=== PATIENT | female | born 1995 | race African-American/Black ===

== ENCOUNTER 2017-11-28 09:54 | Emergency (ER) | payer MEDICAID ==
[~2017-11-28 09:54] MED LIST: FERRTAB2 PO; PREN1CAP20 PO
--- NOTE | 2017-11-28 10:31 | PD ---
HPI Chief Complaint [place] discharge with cramping Date Seen: Nov 28, 2017 Time Seen: 10:27 Travel History International Travel<30 Days: No Contact w/Intl Traveler<30Days: No Known Affected Area: No History of Present Illness HPI 21-year-old who is at 37 weeks 6 days comes in complaining of pink discharge that occurred this morning and lower pelvic cramping that has been occurring since last night. Patient was checked a couple days ago and was noted to be 1 cm. She is group B strep positive and is set up for section in 2 weeks due to breech presentation Weeks Gestation: 37 Para: 0 : 1 History Past Medical History Medical History: Denies Significant Hx Past Surgical History Surgical History: No Previous Surgery Family History Family History: Negative Social History Alcohol Use: No Tobacco Use: No Substance Abuse: No Allergies-Medications (Allergen,Severity, Reaction): Coded Allergies: No Known Allergies (Unverified Adverse Reaction, Unknown, 09/17/17) Home Meds Active Scripts Multi-Vit/Iron-Folic [id number] C (Ferralet) 90-1-0.012-120 mg Tab, 1 CAPLET PO DAILY for 30 Days, #30 CAP 4 [facility] W/O Vit A W/ Fe Carbo (Prenate Mini 18-0.6-0.4-350 mg) 18 Mg Iron-1 Mg- 350 Mg Cap, 1 CAPLET PO DAILY for 30 Days, #30 CAPLET 3 [facility] Review of Systems Except as stated in HPI: all other systems reviewed are Neg Physical Exam Narrative GENERAL: Well-nourished, well-developed patient. SKIN: Warm and dry. HEAD: Normocephalic and atraumatic. EYES: No scleral icterus. No injection or drainage. ENT: No nasal drainage noted. Mucous membranes pink. Airway patent. NECK: Supple, trachea midline. No JVD. CARDIOVASCULAR: Regular rate and rhythm without murmurs, gallops, or rubs. RESPIRATORY: Breath sounds equal bilaterally. No accessory muscle use. ABDOMEN/GI: Abdomen soft, non-tender, bowel sounds present, no rebound, no guarding Gravid to [37-] weeks size Fundal Height: [-] GENITOURINARY: External Genitalia: intact and normal in appearance BUS glands: [-Normal] Cervix: [-Posterior] Dilatation: [1] Effacement: [50-] Station: [-High] Presentation: [-Breech] Membranes: [intact or ruptured] intact Uterine Contractions: [-] Occasional FHT's: Category: [-] 1 Baseline: [-] 140 Reactive: [-] Moderate Variability: [-] Moderate Decels: [-] Absent EXTREMITIES: No cyanosis or edema. BACK: Nontender without obvious deformity. No CVA tenderness. NEUROLOGICAL: Awake and alert. Motor and sensory grossly within normal limits. Five out of 5 muscle strength in all muscle groups. Normal speech. Data Data Vital Signs Reviewed: Yes Group B Strep: Positive MDM Medical Record Reviewed: Yes Plan 21-year-old who is at 37 weeks 6 days with breech presentation Small amount of pink discharge noted by patient now resolved Patient is not in labor with only occasional contractions and no cervical change since her last exam earlier this week Patient has a primary section set up for 2 weeks Diagnosis Diagnosis: Primary Impression: 37 weeks gestation of Additional Impressions: Breech presentation Pelvic pain affecting in third trimester, antepartum Disposition: 01 DISCHARGE HOME Pat Chino MD Nov 28, 2017 10:31
== END 2017-11-28 11:12 | disposition home or self-care (01) ==
LOC: HOBED 09:54
DX: O26.893 Other specified pregnancy related conditions, third trimester (principal); R10.2 Pelvic and perineal pain; O32.1XX0 Maternal care for breech presentation, not applicable or unspecified; O98.813 Other maternal infectious and parasitic diseases complicating pregnancy, third trimester; B95.1 Streptococcus, group B, as the cause of diseases classified elsewhere; Z3A.37 37 weeks gestation of pregnancy
CPT/HCPCS: 99283

== ENCOUNTER 2017-11-29 12:25 | Inpatient (IN) | payer MEDICAID ==
[~2017-11-29] VITALS: Ht 172.7 cm; Wt 88.0 kg
[~2017-11-29 12:25] MED LIST changes: +KETOROLAC TROMETHAMINE 30 MG/ML (IVP) VIAL IV PUSH ONE; +ONDANSETRON HCL 4 MG/2 ML VIAL IV ONE; +OXYTOCIN 10 UNIT/ML AMP IV ONE; +PHENYLEPH/NS 1000 MCG/10 ML SYR IV ONE; +PROPOFOL 200 MG/20 ML AMP IV ONE; +ePHEDrine/NS 25 MG/5 ML SYRINGE IV ONE
--- NOTE | 2017-11-29 13:47 | HHI.HP ---
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) Patient Name: Franco Novak Unit Number: [id number] Date of : 1995 Patient Status: Discharged Inpatient (obs) Attending Doctor: Gerardo Stuart II, MD HPI HPI Chief Complaint Patient is 21-year-old black female at 38 weeks with fetus in breech presentation and in early labor today and kvng cervix -3 still breech ,so we will plan the patient for a primary section Date Seen: Nov 29, 2017 Time Seen: 1 300 Travel History International Travel<30 Days: No Contact w/Intl Traveler<30Days: No History of Present Illness HPI Patient is a 21-year-old black female at 38 weeks breech presents in early labor cervix is dilated contractions noted heart tones are reactive Para: 0 : 1 History (Limited) History Social History Alcohol Use: No Tobacco Use: No Substance Abuse: No Allergies-Medications Allergies-Medications (Allergen,Severity, Reaction): Coded Allergies: No Known Allergies (Unverified Adverse Reaction, Unknown, 09/17/17) Home Meds Active Scripts Multi-Vit/Iron-Folic [id number] C (Ferralet) 90-1-0.012-120 mg Tab, 1 CAPLET PO DAILY for 30 Days, #30 CAP 4 Refills Prov:Patsy Quintanilla CNM [facility] 09/02/17 W/O Vit A W/ Fe Carbo (Prenate Mini 18-0.6-0.4-350 mg) 18 Mg Iron-1 Mg- 350 Mg Cap, 1 CAPLET PO DAILY for 30 Days, #30 CAPLET 3 Refills Prov:Patsy Quintanilla CNM [facility] 09/02/17 ROS Review of Systems General / Constitutional: No: Fever, Weight Gain, Chills, Other Eyes: No: Diploplia, Blurred Vision, Visual changes, Pain, Photophobia HENT: No: Headaches, Vertigo, Lightheadedness Cardiovascular: No: Irregular Rhythm, Chest Pain or Discomfort, Palpitations, Tachycardia, Syncope, Varicosities, Edema, Cyanosis Respiratory: No: Cough, Short of Breath, Other Gastrointestinal: No: Nausea, Vomiting, Diarrhea Genitourinary: No: Decreased Urinary Output, Oliguria Musculoskeletal: No: Limited ROM, Weakness, Cramping, Edema, Pain Skin: No Rash, No Itching, No Dryness, No Lumps, No Change in Pigmentation, No Change in Nails, No Alopecia, No Lesions Neurologic: No: Weakness, Dizziness, Syncope, Focal Abnormalities, Coordination Problem, Headache, Slurred Speech, Seizures Psychiatric: No: Depression, Suicidal Ideations, Homicidal Ideation Endocrine: No: Heat Intolerance, Cold Intolerance, Polydipsia, Polyuria, Other Physical Exam Physical Exam Narrative GENERAL: Well-nourished, well-developed patient. SKIN: Warm and dry. HEAD: Normocephalic and atraumatic. EYES: No scleral icterus. No injection or drainage. ENT: No nasal drainage noted. Mucous membranes pink. Airway patent. NECK: Supple, trachea midline. No JVD. CARDIOVASCULAR: Regular rate and rhythm without murmurs, gallops, or rubs. RESPIRATORY: Breath sounds equal bilaterally. No accessory muscle use. BREASTS: Bilateral exam showed no masses , no retractions, no nipple discharge. ABDOMEN/GI: Abdomen soft, non-tender, bowel sounds present, no rebound, no guarding Gravid to [36-] weeks size Fundal Height: [36-] GENITOURINARY: External Genitalia: intact and normal in appearance BUS glands: [-] Cervix: [post-] Dilatation: [4] Effacement: [80] Station: [-2] Presentation: [breech-] Membranes: [intact ] Uterine Contractions: q 6 min-] FHT's: Category: [-1] Baseline: [-133] Reactive: [-R] Variability: [mod-] Decels: [none-] EXTREMITIES: No cyanosis or edema. BACK: Nontender without obvious deformity. No CVA tenderness. NEUROLOGICAL: Awake and alert. Motor and sensory grossly within normal limits. Five out of 5 muscle strength in all muscle groups. Normal speech. Data Data Data Orders Orders Complete Blood Count With Diff (11/18/17 09:36) Type And Screen (11/18/17 09:36) Urinalysis - C+S If Indicated (11/18/17 09:36) Specimen To Be Collected PRN (11/18/17 09:36) Place In Observation (11/18/17 ) ^ Ultrasound For Locatio (11/18/17 09:39) ^ Non Stress Test (11/18/17 09:39) ^ Status (11/18/17 09:39) Discharge Instructions (11/18/17 09:39) ^ Rhogam (11/18/17 09:39) Lactated Ringer's 1000 Ml Inj (Lr 1000 M (11/18/17 09:39) Terbutaline Inj (Brethine Inj) (11/18/17 10:30) Fentanyl Inj (Fentanyl Inj) (11/18/17 10:30) Terbutaline Inj (Brethine Inj) (11/18/17 10:45) Fentanyl Inj (Fentanyl Inj) (11/18/17 10:15) Lactated Ringer's 1000 Ml Inj (Lr 1000 M (11/18/17 10:30) Attending Discharge Order (11/18/17 ) Dextrose 5%-Lactated Ring Inj (D5-Lr Inj (11/18/17 11:15) Fentanyl Inj (Fentanyl Inj) (11/18/17 11:45) Us Ob Bpp Wo Nst W Repeat (11/18/17 ) Labs Laboratory Tests Test 11/18/17 09:40 11/18/17 09:42 White Blood Count 7.2 Red Blood Count 3.71 Hemoglobin 10.7 Hematocrit 31.3 Mean Corpuscular Volume 84.4 Mean Corpuscular Hemoglobin 28.8 Mean Corpuscular Hemoglobin Concent 34.1 Red Cell Distribution Width 13.5 Platelet Count 284 Mean Platelet Volume 7.3 Neutrophils (%) (Auto) 66.0 Lymphocytes (%) (Auto) 23.9 Monocytes (%) (Auto) 9.2 Eosinophils (%) (Auto) 0.5 Basophils (%) (Auto) 0.4 Neutrophils # (Auto) 4.8 Lymphocytes # (Auto) 1.7 Monocytes # (Auto) 0.7 Eosinophils # (Auto) 0.0 Basophils # (Auto) 0.0 CBC Comment DIFF FINAL Differential Comment Urine Color YELLOW Urine Turbidity HAZY Urine pH 6.0 Urine Specific [place] 1.012 Urine Protein NEG Urine Glucose (UA) NEG Urine Ketones NEG Urine Occult Blood NEG Urine Nitrite NEG Urine Bilirubin NEG Urine Urobilinogen LESS THAN 2.0 Urine Leukocyte Esterase NEG Urine RBC LESS THAN 1 Urine WBC LESS THAN 1 Urine Squamous Epithelial Cells 10 Urine Mucus FEW Microscopic Urinalysis Comment CULT NOT INDICATED MDM MDM Interpretation(s) Patient is 21-year-old white female at 38 weeks who is now a section due to breech presentation in labor Plan admit to labor and delivery proceed with transabdominal delivery due to breech presentation Diagnosis: Breech presentation Disposition: 0 ADMIT Condition: Stable Patient Instructions: Early Labor Signs (GEN), Movement (DC) Gerardo Stuart II, MD Nov 29, 2017 13:42 Gerardo Stuart II, MD Nov 29, 2017 13:47
[2017-11-29] MEDS ORDERED: LACTATED RINGER'S 1000 ML INJ 1,000 ML IV ONE (14:00)
[2017-11-29] MEDS ORDERED: MORPHINE SULFATE PF 5 MG/10 ML VIAL ONE (14:14)
[2017-11-29 14:30] LABS: AUTOMATED NEUTROPHIL # 4.9 TH/MM3 (1.8-7.7); BASOPHIL % 0.5 % (0.0-2.0); EOSINOPHIL % 0.1 % (0.0-4.0); HEMATOCRIT 35.2 % (35.0-46.0); HEMOGLOBIN 11.7 GM/DL (11.6-15.3); LYMPHOCYTE # 1.4 TH/MM3 (1.0-4.8); MEAN CELL VOLUME 83.9 FL (80.0-100.0); MEAN CORPUSCULAR HEMOGLOBIN 27.8 PG (27.0-34.0); MEAN CORPUSCULAR HGB CONC 33.1 % (32.0-36.0); MEAN PLATELET VOLUME 7.6 FL (7.0-11.0); MONO % 7.4 % (0.0-8.0); MONOCYTE # 0.5 TH/MM3 (0-0.9); PLATELET COUNT 309 TH/MM3 (150-450); RED CELL DISTRIBUTION WIDTH 14.6 % (11.6-17.2); WHITE BLOOD COUNT 6.8 TH/MM3 (4.0-11.0)
[2017-11-29] MEDS ORDERED: LACTATED RINGER'S 1000 ML INJ 1,000 ML IV SCH ×2 (14:30→20:44)
[2017-11-29] MEDS ORDERED: ceFAZolin 2 GM PREMIX 50 ML IV SCH (14:45)
[2017-11-29] MEDS ORDERED: CITRIC ACID-SODIUM CITRATE LIQ 30 ML UDC PO SCH (15:15)
[2017-11-29] MEDS ORDERED: SODIUM CHLORIDE 0.9% FLUSH 10 ML FLUSH IV FLUSH PRN (15:45)
[2017-11-29] MEDS ORDERED: ACETAMINOPHEN 325 MG TAB PO PRN (15:45)
[2017-11-29] MEDS ORDERED: OXYTOCIN 30 UNITS-500ML PREMIX 500 ML IV ONE (15:45)
[2017-11-29] MEDS ORDERED: KETOROLAC TROMETHAMINE 60 MG/2 ML (IM) VIAL IM PRN ×2 (15:45)
[2017-11-29] MEDS ORDERED: ONDANSETRON HCL 4 MG/2 ML VIAL IV PUSH PRN (15:45)
[2017-11-29] MEDS ORDERED: MEPERIDINE HCL 25 MG/ML VIAL IV ONE (15:49)
[2017-11-29] MEDS ORDERED: MEPERIDINE HCL 25 MG/ML VIAL ONE (15:49)
[2017-11-29] MEDS ORDERED: ACETAMINOPHEN 1000 MG/100 ML 100 ML IV ONE ×2 (15:49)
[2017-11-29 15:55] VITALS: BP 129/72; PULSE 100; RESP 27; TEMP 98; O2SAT 100
[2017-11-29 16:05] VITALS: BP 141/83; PULSE 90; RESP 22; O2SAT 99
[2017-11-29 16:20] VITALS: BP 130/79; PULSE 81; RESP 30; O2SAT 100
[2017-11-29 16:24] LABS: BILIRUBIN, URINE NEG (NEG); BLOOD, URINE NEG (NEG); GLUCOSE,URINE NEG (NEG); KETONE, URINE 10 mg/dL (NEG); MUCUS URINE FEW /lpf (OCC); NITRITE,URINE NEG (NEG); URINE COLOR LIGHT-YELLOW (YELLW/STRAW); URINE LEUKOCYTE ESTERASE NEG (NEG)
[2017-11-29 16:34] VITALS: BP 136/67; PULSE 80; RESP 16; TEMP 98; O2SAT 100
--- NOTE | 2017-11-29 16:45 | MP ---
cc: Gerardo Stuart MD DATE OF OPERATION: 11/29/2017 PREOPERATIVE DIAGNOSIS: A 38-week intrauterine breech presentation in early labor. POSTOPERATIVE DIAGNOSIS: A 38-week intrauterine breech presentation in early labor. PROCEDURE PERFORMED: Primary low transverse section. SURGEON: Gerardo Stuart MD HELP AID: Martin ANESTHESIA: Spinal. PREOPERATIVE NOTE: The patient is a 21-year-old, black female G1, P0 at 38 weeks with known breech presentation for some time, now presents in early labor. Cervix is 4 cm dilated and 80% effaced with contractions every 6-7 minutes so patient is entering labor and will need transabdominal delivery. PROCEDURE: The patient was taken to the Operating Room and placed in supine position on the operating table. Adequate spinal anesthesia was administered. She was prepped and draped for abdominal surgery. A Pfannenstiel incision was made in the lower abdomen, carried to fascia sharply. The fascia dissected off the rectus muscle. The rectus split in the midline. Peritoneal cavity entered sharply. The incision extended superiorly and inferiorly. The bladder blade placed in the lower uterine incision, the visceral peritoneum reflected off the lower uterine segment and placed on a bladder blade. A transverse hysterotomy was made and extended bluntly bilaterally. Clear fluid noted. Baby was in a michelle breech presentation and was delivered without difficulty. Baby was delivered at 1506, female, weight 3560 grams, 8 and 9. There were no complications of delivery. Delayed cord clamping was done. Baby handed to waiting nursery staff. Cord blood obtained, the placenta manually extracted. The uterus exteriorized and the hysterotomy closed in running layer 0 chromic followed by imbricating suture of same. Hemostasis was achieved. The bladder reapproximated with a running suture of 2-0 Vicryl. The uterus elevated and blood suctioned cul-de-sac and gutters. The ovaries and tubes noted to be within normal limits. The uterus was placed in the peritoneal cavity. The parietal peritoneum was closed in running layer of 2-0 Vicryl. The rectus muscles were reapproximated with stick ties of chromic and Vicryl. The fascia closed in running layer 0 Vicryl. Subcutaneous tissues reapproximated with a running 3-0 plain catgut suture and then skin closed with 3-0 Monocryl subcuticular stitch. Pressure dressing applied. ESTIMATED BLOOD LOSS: 500 mL. COMPLICATIONS: There were no complications. SPONGE AND NEEDLE COUNTS: Correct x2. The patient returned to recovery in stable condition. MD ANGEL Sanon/PILO , 03:43 PM , 04:43 PM
[2017-11-29 16:50] VITALS: BP 143/72; PULSE 91; RESP 24; O2SAT 99
[2017-11-29] MEDS ORDERED: EPIDURAL-NALOXONE HCL 0.4 MG/ML AMP IV PUSH PRN (17:30)
[2017-11-29] MEDS ORDERED: EPIDURAL-NO SYSTEMIC NARCOTICS PRN (17:30)
[2017-11-29] MEDS ORDERED: EPIDURAL-DIPHENHYDRAMINE HCL 50 MG/ML VIAL IV PUSH PRN (17:30)
[2017-11-29] MEDS ORDERED: EPIDURAL-DIPHENHYDRAMINE HCL 50 MG CAP PO PRN (17:30)
[2017-11-29] MEDS ORDERED: EPIDURAL-DO NOT ADMINISTER ANTICOAGULANTS PRN (17:30)
[2017-11-29 20:00] VITALS: BP 153/82; PULSE 112; RESP 20; TEMP 98.5; O2SAT 98
[2017-11-29] MEDS ORDERED: SODIUM CHLORIDE 0.9% FLUSH 10 ML FLUSH IV FLUSH SCH (21:00)
[2017-11-29] MEDS ORDERED: ZOLPIDEM TARTRATE 5 MG TAB PO PRN (21:00)
[2017-11-30] MEDS: CEFAZOLIN INJ 2,000 MG in SODIUM CHLORIDE 0.9% INJ 100 ML IV SCH ×2 (00:21→08:38)
[2017-11-30 01:00] VITALS: BP 139/72; PULSE 102; RESP 18; TEMP 98.6; O2SAT 98
[2017-11-30] MEDS ORDERED: OXYTOCIN 30 UNITS-500ML PREMIX 500 ML IV PRN (01:45)
[2017-11-30] MEDS: IBUPROFEN 600 MG TAB PO PRN ×4 (04:00→23:41)
[2017-11-30] MEDS: oxyCODONE/ACETAMINOPHEN 5 MG/325 MG TAB PO PRN ×5 (04:00→23:41)
[2017-11-30] MEDS: DOCUSATE SODIUM 50 MG/SENNA 8.6 MG TAB PO PRN (04:00)
[2017-11-30 05:00] VITALS: BP 142/84; PULSE 82; RESP 16; TEMP 98.3; O2SAT 98
[2017-11-30 05:47] LABS: AUTOMATED NEUTROPHIL # 5.7 TH/MM3 (1.8-7.7); BASOPHIL % 0.2 % (0.0-2.0); EOSINOPHIL % 0.2 % (0.0-4.0); HEMATOCRIT 27.8 % (35.0-46.0); HEMOGLOBIN 9.3 GM/DL (11.6-15.3); LYMPH % 19.3 % (9.0-44.0); LYMPHOCYTE # 1.6 TH/MM3 (1.0-4.8); MEAN CELL VOLUME 83.6 FL (80.0-100.0); MEAN CORPUSCULAR HGB CONC 33.4 % (32.0-36.0); MEAN PLATELET VOLUME 7.2 FL (7.0-11.0); MONO % 11.1 % (0.0-8.0); MONOCYTE # 0.9 TH/MM3 (0-0.9); NEUT % 69.2 % (16.0-70.0); PLATELET COUNT 255 TH/MM3 (150-450); RED BLOOD COUNT 3.32 MIL/MM3 (4.00-5.30); RED CELL DISTRIBUTION WIDTH 14.8 % (11.6-17.2); WHITE BLOOD COUNT 8.3 TH/MM3 (4.0-11.0)
--- NOTE | 2017-11-30 08:16 | HHI.OB ---
Subjective Post Operative Day: 1 Remarks Postoperative day number 1. AFVSS overnight. Pain well-controlled. Incision not draining. Decreased lochia. Denies dysuria. No breast tenderness. She is feeding the baby via breast. Appetite good. No nausea or vomiting. no flatus. no bowel movement. Ambulating well. Denies calf pain, shortness of breath, or cough. Otherwise, she is doing well this morning and has no other complaints. Objective Vitals/I&O Vital Signs Date Time Temp Pulse Resp B/P (MAP) Pulse Ox O2 Delivery O2 Flow Rate FiO2 11/30/17 05:00 82 16 142/84 (103) 11/30/17 05:00 98.3 98 11/30/17 01:00 139/72 (94) 11/30/17 01:00 98.6 102 18 98 11/29/17 20:00 98.5 112 20 98 11/29/17 20:00 153/82 (105) 11/29/17 16:50 91 24 143/72 (95) 99 11/29/17 16:34 80 16 136/67 (90) 100 11/29/17 16:34 98.0 11/29/17 16:20 81 130/79 (96) 11/29/17 16:20 30 100 11/29/17 16:05 90 22 141/83 (102) 99 11/29/17 15:55 98.0 100 11/29/17 15:55 100 27 129/72 (91) Result Diagram: 11/30/17 0532 Objective Remarks GENERAL: Well-nourished, well-developed patient. CARDIOVASCULAR: Regular rate and rhythm without murmurs, gallops, or rubs. RESPIRATORY: Breath sounds equal bilaterally. No accessory muscle use. ABDOMEN/GI: Abdomen soft, non-tender, bowel sounds present. Incision: Clean, dry and intact. Fundus: Firm, non-tender at umbilicus. GENITOURINARY: Light to moderate bleeding. EXTREMITIES: No cyanosis or edema, non-tender, without signs of DVT. Medications and IVs Current Medications Medications (Trade) Dose Ordered Sig/Peter Route Start Time Stop Time Status Last Admin Lactated Ringer's 1,000 ml @ 100 mls/hr Q10H IV 11/29/17 20:44 11/30/17 16:43 Oxytocin 500 ml @ 100 mls/hr UNSCH X1 PRN IV 11/30/17 01:45 12/01/17 01:44 (NS Flush) 2 ml BID IV FLUSH 11/29/17 21:00 (NS Flush) 2 ml UNSCH PRN IV FLUSH 11/29/17 15:45 (Mylicon Chew) 80 mg QID PRN PO 11/29/17 15:45 (Tylenol) 650 mg Q6H PRN PO 11/29/17 15:45 (Motrin) 600 mg Q6H PRN PO 11/29/17 15:45 11/30/17 04:00 (Toradol Inj) 60 mg UNSCH X1 PRN IM 11/29/17 15:45 11/30/17 15:44 (Toradol Inj) 30 mg Q6H PRN IM 11/29/17 15:45 11/30/17 15:44 (Percocet 5-325 Mg) 1 tab Q4H PRN PO 11/29/17 15:45 (Percocet 5-325 Mg) 2 tab Q4H PRN PO 11/29/17 15:45 11/30/17 04:00 (Sadia-Colace) 2 tab Q12H PRN PO 11/29/17 15:45 11/30/17 04:00 (Ambien) 5 mg HS PRN PO 11/29/17 21:00 (M-M-R Ii Inj) 0.5 ml ONCE ONCE SQ 11/30/17 16:00 11/30/17 16:01 (Boostrix Inj) 0.5 ml ONCE ONCE IM 11/30/17 16:00 11/30/17 16:01 11/30/17 01:24 (Zofran Inj) 4 mg Q6H PRN IV PUSH 11/29/17 15:45 Miscellaneous Information NO SYSTEMIC NARCOTICS TO BE GIVEN FO... UNSCH PRN .XX 11/29/17 17:30 11/30/17 17:29 (Narcan Inj) 0.4 mg UNSCH PRN IV PUSH 11/29/17 17:30 11/30/17 17:29 (Benadryl Inj) 25 mg Q6H PRN IV PUSH 11/29/17 17:30 11/30/17 17:29 11/29/17 18:21 (Benadryl) 50 mg Q6H PRN PO 11/29/17 17:30 11/30/17 17:29 11/30/17 01:22 Miscellaneous Information ALL NURSING DEPARTMENTS UNSCH PRN .XX 11/29/17 17:30 11/30/17 17:29 Assessment/Plan Problem List: (1) Delivery by section for breech presentation ICD Codes: O32.1XX0 - Maternal care for breech presentation, not applicable or unspecified Status: Acute Plan: 21 y/o female who is POD# 1 s/p CXN. -Continue routine care. -Percocet and Motrin PRN pain. -Encouraged OOB. Advised pelvic rest for 6 wks. Will need a f/u appt. in 1 wk for incision check. -Re: ctrl, she would like to consider a LARC. -D/c in 1-2 more days. wdw OB attending Suly Recinos MD R1 Nov 30, 2017 08:16
[2017-11-30 08:45] VITALS: BP 136/85; PULSE 107; RESP 18; TEMP 98.1
[2017-11-30 12:30] VITALS: BP 131/89; PULSE 94; RESP 14; TEMP 98.5; O2SAT 98
[2017-11-30] MEDS: SIMETHICONE 80 MG CHEWABLE TAB PO PRN (14:40)
[2017-11-30] MEDS ORDERED: DIPHTH/TETANUS/ACEL PERTUSSIS (BOOSTER) 0.5 ML VIAL/PFS IM ONE (16:00)
[2017-11-30] MEDS ORDERED: MEASLES, MUMPS, RUBELLA VACCINE 0.5 ML VIAL SQ ONE (16:00)
[2017-11-30 19:15] VITALS: BP 151/80; PULSE 96; RESP 18; TEMP 98.9; O2SAT 99
[2017-12-01] MEDS: oxyCODONE/ACETAMINOPHEN 5 MG/325 MG TAB PO PRN ×5 (03:55→21:12)
--- NOTE | 2017-12-01 07:25 | HHI.OB ---
Subjective Post Operative Day: 2 Remarks Postoperative day number 2. AFVSS overnight. Pain well-controlled. Incision not draining. Decreased lochia. Denies dysuria. No breast tenderness. She is feeding the baby via breast/bottle. Appetite good. No nausea or vomiting. She is having flatus. no bowel movement. Ambulating well. Denies calf pain, shortness of breath, or cough. Otherwise, she is doing well this morning and has no other complaints. Objective Vitals/I&O Vital Signs Date Time Temp Pulse Resp B/P (MAP) Pulse Ox O2 Delivery O2 Flow Rate FiO2 11/30/17 19:15 98.9 96 18 151/80 (103) 99 11/30/17 12:30 98.5 94 14 131/89 (103) 98 11/30/17 08:45 98.1 107 18 136/85 (102) Result Diagram: 11/30/17 0532 Objective Remarks GENERAL: Well-nourished, well-developed patient. CARDIOVASCULAR: Regular rate and rhythm without murmurs, gallops, or rubs. RESPIRATORY: Breath sounds equal bilaterally. No accessory muscle use. ABDOMEN/GI: Abdomen soft, non-tender, bowel sounds present. Incision: Clean, dry and intact. Fundus: Firm, non-tender at umbilicus. GENITOURINARY: Light to moderate bleeding. EXTREMITIES: No cyanosis or edema, non-tender, without signs of DVT. Medications and IVs Current Medications Medications (Trade) Dose Ordered Sig/Peter Route Start Time Stop Time Status Last Admin (NS Flush) 2 ml BID IV FLUSH 11/29/17 21:00 11/30/17 08:39 (NS Flush) 2 ml UNSCH PRN IV FLUSH 11/29/17 15:45 (Mylicon Chew) 80 mg QID PRN PO 11/29/17 15:45 11/30/17 14:40 (Tylenol) 650 mg Q6H PRN PO 11/29/17 15:45 (Motrin) 600 mg Q6H PRN PO 11/29/17 15:45 11/30/17 23:41 (Percocet 5-325 Mg) 1 tab Q4H PRN PO 11/29/17 15:45 12/01/17 03:55 (Percocet 5-325 Mg) 2 tab Q4H PRN PO 11/29/17 15:45 11/30/17 18:53 (Sadia-Colace) 2 tab Q12H PRN PO 11/29/17 15:45 11/30/17 04:00 (Ambien) 5 mg HS PRN PO 11/29/17 21:00 (Zofran Inj) 4 mg Q6H PRN IV PUSH 11/29/17 15:45 Assessment/Plan Problem List: (1) Delivery by section for breech presentation ICD Codes: O32.1XX0 - Maternal care for breech presentation, not applicable or unspecified Status: Acute Plan: 21 y/o female who is POD# 2 s/p CXN. -Continue routine care. -Percocet and Motrin PRN pain. -Encouraged OOB. Advised pelvic rest for 6 wks. Will need a f/u appt. in 1 wk for incision check. -Re: ctrl, she would like to consider a LARC. -D/c today or tomorrow, upon baby's discharge. wdw OB attending Suly Recinos MD R1 Dec 01, 2017 07:25
[2017-12-01] MEDS: DOCUSATE SODIUM 50 MG/SENNA 8.6 MG TAB PO PRN ×2 (07:38→19:37)
[2017-12-01] MEDS: IBUPROFEN 600 MG TAB PO PRN ×2 (07:41→16:54)
[2017-12-01 08:00] VITALS: BP 142/82; PULSE 89; RESP 20; TEMP 98
[2017-12-01 19:35] VITALS: BP 142/85; PULSE 130; RESP 18; TEMP 98
[2017-12-01] MEDS: SIMETHICONE 80 MG CHEWABLE TAB PO PRN (19:38)
[2017-12-01 21:00] VITALS: PULSE 89; RESP 18
[2017-12-02] VITALS: BP 145/84; PULSE 96; RESP 20; TEMP 98.4
[2017-12-02] MEDS: IBUPROFEN 600 MG TAB PO PRN ×2 (00:32→10:06)
[2017-12-02] MEDS: oxyCODONE/ACETAMINOPHEN 5 MG/325 MG TAB PO PRN ×2 (02:22→10:06)
--- NOTE | 2017-12-02 08:08 | HHI.OB ---
Subjective Post Operative Day: 3 Remarks Postoperative day number 3. AFVSS overnight. Pain well-controlled. Incision not draining. Decreased lochia. Denies dysuria. No breast tenderness. She is feeding the baby via breast. Appetite good. No nausea or vomiting. + flatus. She had a bowel movement. Ambulating well. Denies calf pain, shortness of breath, or cough. Otherwise, she is doing well this morning and has no other complaints. Objective Vitals/I&O Vital Signs Date Time Temp Pulse Resp B/P (MAP) Pulse Ox O2 Delivery O2 Flow Rate FiO2 12/02/17 00:00 98.4 12/02/17 00:00 96 20 145/84 (104) 12/01/17 21:00 89 18 12/01/17 19:35 98.0 130 18 142/85 (104) Result Diagram: 11/30/17 0532 Objective Remarks GENERAL: Well-nourished, well-developed patient. CARDIOVASCULAR: Regular rate and rhythm without murmurs, gallops, or rubs. RESPIRATORY: Breath sounds equal bilaterally. No accessory muscle use. ABDOMEN/GI: Abdomen soft, non-tender, bowel sounds present. Incision: Clean, dry and intact. Fundus: Firm, non-tender at umbilicus. GENITOURINARY: Light to moderate bleeding. EXTREMITIES: No cyanosis or edema, non-tender, without signs of DVT. Medications and IVs Current Medications Medications (Trade) Dose Ordered Sig/Peter Route Start Time Stop Time Status Last Admin (NS Flush) 2 ml BID IV FLUSH 11/29/17 21:00 11/30/17 08:39 (NS Flush) 2 ml UNSCH PRN IV FLUSH 11/29/17 15:45 (Mylicon Chew) 80 mg QID PRN PO 11/29/17 15:45 12/01/17 19:38 (Tylenol) 650 mg Q6H PRN PO 11/29/17 15:45 (Motrin) 600 mg Q6H PRN PO 11/29/17 15:45 12/02/17 00:32 (Percocet 5-325 Mg) 1 tab Q4H PRN PO 11/29/17 15:45 12/01/17 03:55 (Percocet 5-325 Mg) 2 tab Q4H PRN PO 11/29/17 15:45 12/02/17 02:22 (Sadia-Colace) 2 tab Q12H PRN PO 11/29/17 15:45 12/01/17 19:37 (Ambien) 5 mg HS PRN PO 11/29/17 21:00 (Zofran Inj) 4 mg Q6H PRN IV PUSH 11/29/17 15:45 Assessment/Plan Problem List: (1) Delivery by section for breech presentation ICD Codes: O32.1XX0 - Maternal care for breech presentation, not applicable or unspecified Status: Acute Plan: 21 y/o female who is POD# 3 s/p CXN. -Continue routine care. -Percocet and Motrin PRN pain. -Encouraged OOB. Advised pelvic rest for 6 wks. Will need a f/u appt. in 1 wk for incision check. -Re: ctrl, she would like to consider a LARC. -D/c today. wdw OB attending Suly Recinos MD R1 Dec 02, 2017 08:08
[2017-12-02] MEDS ORDERED: IBUP-232 PO (08:10)
[2017-12-02] MEDS ORDERED: OXYC1TAB63 PO (08:10)
--- NOTE | 2017-12-02 08:11 | HHI.DCPOC ---
Discharge Care Plan Diagnosis: (1) Delivery by section for breech presentation Report Symptoms to Your Doctor -Temperature above 100.5 degrees -Redness, of incision or excessive or foul smelling drainage -Unusual pain or calf pain -Increased vaginal bleeding -Painful or difficulty urinating -Feelings of extreme sadness or anxiety after 2 weeks Goals to Promote Your Health * To prevent worsening of your condition and complications * To maintain your health at the optimal level Directions to Meet Your Goals Take your medications as prescribed Follow your dietary instruction Follow activity as directed Ensure plenty of rest for recovery Drink fluids for hydration Keep your appointments as scheduled Take your immunizations and boosters as scheduled If your symptoms worsen call your PCP, if no PCP go to Urgent Care Center or Emergency Room Smoking is Dangerous to Your Health. Avoid second hand smoke Call the 24-hour crisis hotline for domestic abuse at Suly Recinos MD R1 Dec 02, 2017 08:11
[2017-12-02 08:45] VITALS: BP 148/85; PULSE 84; RESP 20; TEMP 97.8
== END 2017-12-02 11:21 | disposition home or self-care (01) | DRG 766 ==
LOC: HOBED 12:25 → H2EB 13:40 → H1EA 17:07
PROVIDERS: ADMIT Obstetrics & Gynecology Maternal & Fetal Medicine; ATTEND Obstetrics & Gynecology Maternal & Fetal Medicine
PROC: 10D00Z1 Extraction of Products of Conception, Low, Open Approach (ICD-10-PCS; principal; 2017-11-29)
DX: O32.1XX0 Maternal care for breech presentation, not applicable or unspecified (principal); Z37.0 Single live birth; Z3A.38 38 weeks gestation of pregnancy
CPT/HCPCS: 59025; 80307; 81001; 85025; 86850; 86900; 86901; 90715; 99283; J0131; J0690; J1200; J1885; J2175; J2274; J2370; J2405; J2590; J7120; Q0163